=== PATIENT | female | born 1970 | race Caucasian/White ===

== ENCOUNTER → 2017-03-16 | Outpatient (CLI) | payer BC ==
[~2017-03-16] MED LIST: BCPILLS PO; SERT-234 PO
--- NOTE | 2017-03-17 13:54 | MAMMOGRAPHY REPORT ---
BILATERAL DIGITAL SCREENING MAMMOGRAM TOMOSYNTHESIS WITH CAD: 03/16/2017 CLINICAL HISTORY: Routine screening. Patient has no complaints. TECHNIQUE: Bilateral breast tomosynthesis in addition to standard 2D mammography was performed. Curr ent study was also evaluated with a Computer Aided Detection (CAD) system. COMPARISON: Comparison is made to exams dated: 03/13/2016 mammogram, 03/12/2015 mammogram, 01/16/2014 mammogram, and 01/04/2013 mammogram - [facility]. BREAST COMPOSITION: The tissue of both breasts is extremely dense, which lowers the sensitivity of mammography. FINDINGS: There is a possible obscured 2 cm mass in the upper outer posterior left breast, for whic h additional targeted ultrasound and possible additional mammographic views is recommended. Another possible partially circumscribed and obscured mass is seen in the middle one third of the left [address], inferior to the posterior nipple line on the MLO view (tomosynthesis slice 36), for which additi onal spot compression tomosynthesis views and possibly ultrasound are recommended. There are punctate microcalcifications in the left breast that appear similar dating back to the 201 3 mammograms. No other suspicious mass, architectural distortion or cluster of microcalcifications is seen bilaterally. IMPRESSION: ACR BI-RADS CATEGORY 0: INCOMPLETE EVALUATION: NEED ADDITIONAL IMAGING EVALUATION The possible masses within the left breast need additional imaging evaluation. The patient will be called to schedule an appointment. Approximately 10% of breast cancers are not detected with mammography. A negative mammographic repor t should not delay biopsy if a clinically suggestive mass is present. Salina Lang M.D. ay/:03/16/2017 16:53:20 [employer]: Jacquelnie DON(Rudy)(Rasta)([place]), [facility] letter sent: Addl Imaging 0 BI-RADS Code: ACR BI-RADS Category 0: Incomplete Evaluation: Need Additional Imaging Evaluation
== END | disposition home or self-care (01) ==
LOC: C.MAMM 09:52
PROVIDERS: ATTEND Obstetrics & Gynecology
DX: Z12.31 Encounter for screening mammogram for malignant neoplasm of breast (principal); R92.8 Other abnormal and inconclusive findings on diagnostic imaging of breast

== ENCOUNTER → 2017-03-29 | Outpatient (CLI) | payer BC ==
--- NOTE | 2017-03-29 15:56 | MAMMOGRAPHY REPORT ---
UNILATERAL LEFT DIGITAL DIAGNOSTIC MAMMOGRAM TOMOSYNTHESIS AND LEFT ULTRASOUND: 03/29/2017 CLINICAL HISTORY: 46-year-old woman called back from screening mammography for possible masses withi n the left breast. TECHNIQUE: Spot compression left CC and MLO tomosynthesis images were obtained. COMPARISON: Comparison is made to exams dated: 03/16/2017 mammogram, 03/13/2016 mammogram, 03/12/2015 mammogram, 01/16/2014 mammogram, and 01/04/2013 mammogram - [facility]. BREAST COMPOSITION: The tissue of the left breast is heterogeneously dense, which may obscure small masses. FINDINGS: Additional spot compression views of the left breast demonstrate effacement of the possibl e mass in the far lateral, far posterior breast on the CC view. However, there are smaller partiall y circumscribed and partially obscured masses scattered throughout the entire left breast, most nume bashir in the superior aspect of the breast. No focal area of architectural distortion or suspicious cluster of calcifications is seen. Further evaluation with ultrasound was performed. Real-time high-resolution ultrasound was performed throughout the left breast including the retroare olar breast and left axilla. Numerous anechoic cysts are scattered about the breast, compatible wit h fibrocystic changes. In particular, in the 12:00 left breast, 2 cm from the nipple, there is a lo bulated anechoic cyst measuring 4.8 x 3.6 x 5.4 mm. Several adjacent cysts are seen in the 1:00 lef t breast, 5 cm from the nipple. There are 2 abutting cysts measuring 7.6 x 9.1 mm in conglomerate, and an adjacent 10.1 x 5.6 mm anechoic simple cyst. An additional anechoic oval cyst is identified in the 1:00 left breast, 3 cm from the nipple, measuring 7.9 mm in maximum dimension. There is an o willard parallel circumscribed lobulated cyst in the 6:00 left breast, 2 cm from the nipple, measuring 5 .4 x 2.7 mm. Nodular hypoechoic areas are seen in the 11:00 breast, 4 cm from the nipple, that effa brando in the radial plane and are thought to represent normal tissue and/or stromal fibrosis. However , repeat attention to the 10:00/11:00 axis at follow-up is recommended. No suspicious left axillary lymphadenopathy is identified. IMPRESSION: ACR-BI-RADS CATEGORY 3: PROBABLY BENIGN, ULTRASOUND ACR-BI-RADS CATEGORY 3: PROBABLY BE NIGN 1. There is effacement of the possible dominant mass in the lateral far posterior left breast on th e CC view, that most likely represented normal overlapping fibrolinear glandular tissue. However, s everal other smaller partially circumscribed and is secured masses were seen in the left breast with additional supplemental views for which whole breast ultrasound was performed. 2. Throughout the left breast on ultrasound, numerous scattered benign anechoic cysts are identifie d, in addition to nodular hypoechoic areas in the 11:00 left breast, 4 cm from the nipple, that most likely represent fibrocystic changes and/or stromal fibrosis. However, a short interval follow-up whole breast left ultrasound with particular attention to the 10-11:00 axis is recommended to ensure stability in 6 months. Diagnostic left mammography and tomosynthesis should also be performed at t hat time to exclude any suspicious spiculated or irregular mass. These results and recommendations were discussed with the patient at the time of the exam. She tent atively scheduled a follow-up appointment prior to leaving our department. Approximately 10% of breast cancers are not detected with mammography. A negative mammographic repor t should not delay biopsy if a clinically suggestive mass is present. Salina Lang M.D. ay/:03/29/2017 15:01:20 [employer]: Emi OSORIO)([place]), [facility] letter sent: Follow Up Recommended 3 BI-RADS Code: ACR-BI-RADS Category 3: Probably Benign Ultrasound BI-RADS: ACR-BI-RADS Category 3: P robably Benign
== END | disposition home or self-care (01) ==
LOC: C.MAMM 13:29
PROVIDERS: ATTEND Obstetrics & Gynecology
DX: N63 Unspecified lump in breast (principal); N64.89 Other specified disorders of breast

== ENCOUNTER → 2017-04-21 | Outpatient (CLI) | payer BC | END | disposition home or self-care (01) | LOC: C.PAPS 16:07 | PROVIDERS: ATTEND Obstetrics & Gynecology | DX: Z01.419 Encounter for gynecological examination (general) (routine) without abnormal findings (principal) ==

== ENCOUNTER → 2017-04-21 | Outpatient (CLI) | payer BC | END | disposition home or self-care (01) | LOC: C.LABSPEC 14:06 | PROVIDERS: ATTEND Obstetrics & Gynecology | DX: N89.8 Other specified noninflammatory disorders of vagina (principal) ==

== ENCOUNTER → 2018-03-22 | Outpatient (CLI) | payer OTHER ==
--- NOTE | 2018-03-22 14:23 | MAMMOGRAPHY REPORT ---
BILATERAL DIGITAL SCREENING MAMMOGRAM TOMOSYNTHESIS WITH CAD: 03/22/2018 CLINICAL HISTORY: Routine screening. TECHNIQUE: Breast tomosynthesis in addition to standard 2D mammography was performed. Current study was also evaluated with a Computer Aided Detection (CAD) system. COMPARISON: Comparison is made to exams dated: 09/29/2017 mammogram, 03/29/2017 mammogram, 03/16/2017 ma mmogram, 03/13/2016 mammogram, 03/12/2015 mammogram, and 01/16/2014 mammogram - [facility]. BREAST COMPOSITION: The tissue of both breasts is heterogeneously dense, which may obscure small mas ses. FINDINGS: The glandular pattern is similar to prior mammograms. There are scattered punctate microca lcifications in the superior aspect of the breasts. No new suspicious mass, architectural distortion or cluster of microcalcifications is seen. IMPRESSION: ACR BI-RADS CATEGORY 1: NEGATIVE There is no mammographic evidence of malignancy. A 1 year screening mammogram is recommended. The pa tient will receive written notification of the results. Approximately 10% of breast cancers are not detected with mammography. A negative mammographic report should not delay biopsy if a clinically suggestive mass is present. Salina Lang M.D. ay/:03/22/2018 08:40:02 Guide Delegate: Shade OSORIO)(M), [facility] letter sent: Normal 1/2 BI-RADS Code: ACR BI-RADS Category 1: Negative
== END | disposition home or self-care (01) ==
LOC: C.MAMM 08:11
PROVIDERS: ATTEND Obstetrics & Gynecology
DX: Z12.31 Encounter for screening mammogram for malignant neoplasm of breast (principal)